=== PATIENT | female | born 1965 | race Caucasian/White ===

== ENCOUNTER 2017-08-12 12:20 | Day surgery (SDC) | payer OTHER ==
[2017-08-12] MEDS ORDERED: PROPOFOL 20 ML (15:15)
== END 2017-08-12 17:41 | disposition home or self-care (01) ==
LOC: GIL 12:20
DX: Z86.010 Personal history of colon polyps (principal); Z80.0 Family history of malignant neoplasm of digestive organs; K64.8 Other hemorrhoids; E03.9 Hypothyroidism, unspecified; J45.909 Unspecified asthma, uncomplicated
CPT/HCPCS: 45378